=== PATIENT | male | born 1965 | race Caucasian/White ===

== ENCOUNTER 2017-05-08 12:41 | Inpatient (IN) | payer MEDICAID ==
[~2017-05-08] VITALS: Ht 167.6 cm; Wt 63.9 kg
[2017-05-08 13:09] LABS: BASOPHILS % (AUTO) 0.7 % (0.0-2.0); EOSINOPHILS % (AUTO) 6.7 % (1.0-6.0); HEMATOCRIT 45.7 % (41-53); HEMOGLOBIN 15.8 g/dL (13.5-17.5); LYMPHOCYTES # (AUTO) 1.8 K/uL (1.0-4.8); LYMPHOCYTES % (AUTO) 29.3 % (22.0-44.0); MEAN CORPUSCULAR HEMOGLOBIN 34.4 pg (26.0-34.0); MEAN CORPUSCULAR HGB CONC 34.5 G/dL (31.0-37.0); MEAN CORPUSCULAR VOLUME 100 fL (80-100); MONOCYTES # (AUTO) 0.6 K/uL (0.1-1.0); MONOCYTES % (AUTO) 9.4 % (2.0-9.0); NEUTROPHILS # (AUTO) 3.3 K/uL (1.8-7.7); NEUTROPHILS % (AUTO) 53.9 % (40.0-70.0); PLATELET COUNT (AUTO) 185 K/uL (150-450); RED BLOOD CELL COUNT(AUTO) 4.58 MIL/uL (4.50-5.90); RED CELL DISTRIBUTION WIDTH 18.6 % (11.5-14.5); WHITE BLOOD COUNT (AUTO) 6.2 K/uL (4.5-11.0)
[2017-05-08 13:19] LABS: ANION GAP 9 mmol/L (8-16); CALCIUM, TOTAL 8.2 mg/dL (8.8-10.5); CARBON DIOXIDE 26 mmol/L (22-29); CHLORIDE 110 mmol/L (98-107); CREATININE 0.62 mg/dL (0.60-1.30); GLOMERULAR FILTR. RATE CALC > 60 mL/min (>60); POTASSIUM 3.6 mmol/L (3.5-5.1); SODIUM SERUM 145 mmol/L (136-145); UREA NITROGEN, BLOOD 7 mg/dL (7-18)
[2017-05-08 13:25] LABS: ALANINE AMINOTRANSFERASE 69 U/L (12-78); ALBUMIN 3.7 g/dL (3.4-5.0); ASPARTATE AMINOTRANSFERASE 82 U/L (15-37); BILIRUBIN,TOTAL 0.4 mg/dL (0.1-1.0)
[2017-05-08 13:26] LABS: RBC MORPHOLOGY COMMENT ABNORMAL RBC MORPH
[2017-05-08] MEDS ORDERED: LORazepam 2 MG/ML VIAL IM ONE (13:45)
[2017-05-08] MEDS ORDERED: HALOPERIDOL LACTATE 5 MG/ML VIAL IM ONE (13:45)
[2017-05-08] MEDS ORDERED: DiphenhydrAMINE HCL 50 MG/ML VIAL IM ONE (13:45)
[2017-05-08] MEDS ORDERED: MAGNESIUM SULFATE 2 GM, MVI, ADULT NO.1 WITH VIT K 10 ML, THIAMINE HCL 100 MG, FOLIC AC... IV ONE ×5 (16:00)
[2017-05-08] MEDS ORDERED: LORazepam 2 MG TABLET PO PRN (21:30)
[2017-05-09 00:01] LABS: APPEARANCE,URINE CLEAR (CLEAR); GLUCOSE, URINE (UA) NEGATIVE (NEGATIVE); KETONES,URINE TRACE mg/dL (NEGATIVE); LEUKOCYTE ESTERASE ,URINE NEGATIVE (NEGATIVE); OCCULT BLOOD,URINE NEGATIVE (NEGATIVE); PROTEIN,URINE NEGATIVE (NEGATIVE)
[2017-05-09 00:02] LABS: ADD UA MICROSCOPIC NO
[2017-05-09] MEDS ORDERED: BENZOCAINE/MENTHOL LOZENGE MM PRN (06:30)
[2017-05-09] MEDS ORDERED: BACITRACIN 28.4 GM OINTMENT TP PRN (06:30)
[2017-05-09] MEDS ORDERED: MAGNESIUM HYDROXIDE SUSPENSION 30 ML UDCUP PO PRN (06:30)
[2017-05-09] MEDS ORDERED: LOPERAMIDE HCL 2 MG CAPSULE PO PRN (06:30)
[2017-05-09] MEDS ORDERED: CloNIDine HCL 0.1 MG TABLET PO PRN (06:30)
[2017-05-09] MEDS ORDERED: PETROLATUM,WHITE 71 GM JELLY TP PRN (06:30)
[2017-05-09] MEDS ORDERED: IBUPROFEN 600 MG TABLET PO PRN (06:30)
[2017-05-09] MEDS ORDERED: ACETAMINOPHEN 325 MG TABLET PO PRN (06:30)
[2017-05-09] MEDS ORDERED: ALBUTEROL SULFATE HFA 90 MCG/PUFF 8 GM INHALER IH PRN (06:30)
[2017-05-09] MEDS ORDERED: MAG HYDROX/AL HYDROX/SIMETH ES 30 ML SUSPENSION UDCUP PO PRN (06:30)
[2017-05-09] MEDS ORDERED: ONDANSETRON HCL 4 MG TABLET PO PRN (06:30)
[2017-05-09 08:04] LABS: BASOPHILS # (AUTO) 0.07 K/uL (0.00-0.20); BASOPHILS % (AUTO) 1.2 % (0.0-2.0); EOSINOPHILS % (AUTO) 3.47 % (1.0-6.0); HEMATOCRIT 43.8 % (41-53); HEMOGLOBIN 14.9 g/dL (13.5-17.5); LYMPHOCYTES % (AUTO) 16.7 % (22.0-44.0); MEAN CORPUSCULAR HEMOGLOBIN 34.2 pg (26.0-34.0); MEAN CORPUSCULAR HGB CONC 33.9 G/dL (31.0-37.0); MEAN CORPUSCULAR VOLUME 101 fL (80-100); MONOCYTES # (AUTO) 0.4 K/uL (0.1-1.0); MONOCYTES % (AUTO) 6.9 % (2.0-9.0); NEUTROPHILS # (AUTO) 4.2 K/uL (1.8-7.7); NEUTROPHILS % (AUTO) 71.7 % (40.0-70.0); PLATELET COUNT (AUTO) 133 K/uL (150-450); RED BLOOD CELL COUNT(AUTO) 4.35 MIL/uL (4.50-5.90); RED CELL DISTRIBUTION WIDTH 18.5 % (11.5-14.5); WHITE BLOOD COUNT (AUTO) 5.9 K/uL (4.5-11.0)
[2017-05-09 08:06] LABS: RBC MORPHOLOGY COMMENT ABNORMAL RBC MORPH
[2017-05-09 08:19] LABS: ALANINE AMINOTRANSFERASE 63 U/L (12-78); ALBUMIN 3.3 g/dL (3.4-5.0); ANION GAP 12 mmol/L (8-16); ASPARTATE AMINOTRANSFERASE 79 U/L (15-37); BILIRUBIN,TOTAL 0.8 mg/dL (0.1-1.0); CALCIUM, TOTAL 8.6 mg/dL (8.8-10.5); CARBON DIOXIDE 24 mmol/L (22-29); CHLORIDE 107 mmol/L (98-107); CREATININE 0.59 mg/dL (0.60-1.30); GLOMERULAR FILTR. RATE CALC > 60 mL/min (>60); POTASSIUM 4.1 mmol/L (3.5-5.1); SODIUM SERUM 143 mmol/L (136-145); TOTAL PROTEIN, SERUM 6.6 g/dL (6.4-8.2); UREA NITROGEN, BLOOD 8 mg/dL (7-18)
[2017-05-09 08:41] LABS: CHOL/HDL RATIO 1.6 (4.2-7.3)
[2017-05-09] MEDS: MULTIVITAMINS WITH MINERALS, THERAPEUTIC TABLET PO SCH (09:59)
[2017-05-09] MEDS: OMEPRAZOLE 20 MG CAPSULE PO SCH (09:59)
[2017-05-09 10:24] VITALS: BP 134/92
[2017-05-09] MEDS ORDERED: INFLUENZA VIRUS VACCINE QVS 2017-18 (3YR+)/PF 60 MCG/0.5 ML SYRINGE IM ONE (11:00)
[2017-05-09 11:35] VITALS: BP 138/88
[2017-05-09] MEDS ORDERED: LORazepam 2 MG TABLET PO PRN (11:45)
[2017-05-09 12:35] VITALS: BP 135/85
[2017-05-09 13:07] VITALS: BP 138/88
[2017-05-09 13:35] VITALS: BP 136/78
[2017-05-09 16:00] VITALS: BP 136/87
[2017-05-09] MEDS: HALOPERIDOL 5 MG TABLET PO PRN (16:40)
[2017-05-09] MEDS: ZOLPIDEM TARTRATE 10 MG TABLET PO PRN (20:49)
[2017-05-09] MEDS: PRAZOSIN HCL 1 MG CAPSULE PO SCH (20:49)
[2017-05-10 02:45] VITALS: BP 128/78
[2017-05-10 06:35] VITALS: BP 128/78
[2017-05-10] MEDS ORDERED: LORazepam 2 MG TABLET PO PRN (07:00)
[2017-05-10 08:15] VITALS: BP 136/80
[2017-05-10] MEDS: LORazepam 2 MG TABLET PO SCH ×4 (08:38→20:57)
[2017-05-10] MEDS: ESCITALOPRAM OXALATE 10 MG TABLET PO SCH (08:38)
[2017-05-10] MEDS: MULTIVITAMINS WITH MINERALS, THERAPEUTIC TABLET PO SCH (08:55)
[2017-05-10] MEDS: OMEPRAZOLE 20 MG CAPSULE PO SCH (08:55)
[2017-05-10] MEDS: THIAMINE HCL 100 MG TABLET PO SCH (08:56)
[2017-05-10 09:17] LABS: CHOL/HDL RATIO 1.8 (4.2-7.3); THYROID STIMULATING HORMONE 3.63 uIU/mL (0.36-3.74)
[2017-05-10 10:35] VITALS: BP 116/82
[2017-05-10 16:00] VITALS: BP 135/92
[2017-05-10] MEDS: HALOPERIDOL 5 MG TABLET PO PRN (17:05)
[2017-05-10] MEDS: PRAZOSIN HCL 1 MG CAPSULE PO SCH (20:57)
[2017-05-10] MEDS: ZOLPIDEM TARTRATE 10 MG TABLET PO PRN (20:57)
[2017-05-11] MEDS: HALOPERIDOL 5 MG TABLET PO PRN (03:39)
[2017-05-11 05:21] VITALS: BP 140/93
[2017-05-11] MEDS: THIAMINE HCL 100 MG TABLET PO SCH (08:02)
[2017-05-11] MEDS: OMEPRAZOLE 20 MG CAPSULE PO SCH (08:02)
[2017-05-11] MEDS: MULTIVITAMINS WITH MINERALS, THERAPEUTIC TABLET PO SCH (08:02)
[2017-05-11] MEDS: LORazepam 2 MG TABLET PO SCH (08:02)
[2017-05-11] MEDS: ESCITALOPRAM OXALATE 10 MG TABLET PO SCH (08:02)
[2017-05-11 08:15] VITALS: BP 131/86
[2017-05-11 09:13] LABS: HEPATITIS Bs ANTIGEN SCREEN P Negative (Negative); HEPATITIS C AB SCREEN <0.1 s/co ratio (0.0-0.9)
[2017-05-11 09:27] VITALS: BP 112/70
[2017-05-11] MEDS ORDERED: ESCI10TA PO (10:35)
[2017-05-11] MEDS ORDERED: PRAZ1 PO (10:35)
[2017-05-11 10:47] VITALS: BP 103/77
[2017-05-11 12:24] VITALS: BP 131/87
[2017-05-12] MEDS ORDERED: LORazepam 1 MG TABLET PO PRN (07:00)
[2017-05-12] MEDS ORDERED: LORazepam 1 MG TABLET PO SCH (09:00)
== END 2017-05-11 13:30 | disposition home or self-care (01) | DRG 751 ==
LOC: EMS 12:44 → B3A 05-09 08:50
PROC: HZ2ZZZZ Detoxification Services for Substance Abuse Treatment (ICD-10-PCS; principal; 2017-05-09)
PROC: HZ99ZZZ Pharmacotherapy for Substance Abuse Treatment, Other Replacement Medication (ICD-10-PCS; 2017-05-09)
DX: F33.2 Major depressive disorder, recurrent severe without psychotic features (principal); R45.851 Suicidal ideations; Z78.1 Physical restraint status; F20.9 Schizophrenia, unspecified; F15.10 Other stimulant abuse, uncomplicated; F10.229 Alcohol dependence with intoxication, unspecified; F43.10 Post-traumatic stress disorder, unspecified; F12.10 Cannabis abuse, uncomplicated; K21.9 Gastro-esophageal reflux disease without esophagitis; F17.200 Nicotine dependence, unspecified, uncomplicated; K59.00 Constipation, unspecified; G47.00 Insomnia, unspecified; Z85.828 Personal history of other malignant neoplasm of skin; Z85.9 Personal history of malignant neoplasm, unspecified; Z83.3 Family history of diabetes mellitus; Z82.49 Family history of ischemic heart disease and other diseases of the circulatory system; Z59.0 Homelessness; Z83.6 Family history of other diseases of the respiratory system; Z91.81 History of falling
CPT/HCPCS: 80074; 82306; 84443; 96365; 96372; 99285; 99406; G0480; J1200; J1630; J2060; J3411; J3475; J3490; J7030